=== PATIENT | female | born 1950 | race African-American/Black ===

== ENCOUNTER 2016-10-09 07:41 | Day surgery (SDC) | payer MEDICARE, OTHER ==
[2016-10-06 15:55] LABS: HEMATOCRIT 40.1 % (36.0-48.0); HEMOGLOBIN 13.3 g/dL (12.0-16.0)
[2016-10-06 16:07] LABS: BUN (BLOOD UREA NITROGEN) 20 MG/DL (6-23); CHLORIDE, SERUM 105 MMOL/L (96-112); CO2 (CARBON DIOXIDE) 28 MMOL/L (24-34); GFR AFRICAN AMERICAN 90 ML/MIN (>=60); GFR NON AFRICAN AMERICAN 77 ML/MIN (>=60); POTASSIUM, SERUM 3.9 MMOL/L (3.5-5.3); SODIUM, SERUM 144 MMOL/L (135-148)
[2016-10-06 16:11] LABS: GLUCOSE, SERUM 106 MG/DL (60-99)
[~2016-10-09 07:41] MED LIST: ACTOS30 PO; ALPHAGAN P0.1 % OPH; ASAB PO; COQ-1010 MG PO; COZ50 PO; HYDROCHLOROT25 MG PO; MOBIC15 MG PO; PRAVACHOL40 MG PO; VIT D 2 PO
== END 2016-10-09 23:59 | disposition home or self-care (01) ==
LOC: SDC 07:41
PROVIDERS: Ophthalmology
PROC: 08RK3JZ Replacement of Left Lens with Synthetic Substitute, Percutaneous Approach (ICD-10-PCS; principal; 2016-10-09 09:30)
DX: H25.11 Age-related nuclear cataract, right eye (principal); I10 Essential (primary) hypertension; E78.00 Pure hypercholesterolemia, unspecified; E66.8 Other obesity; M19.90 Unspecified osteoarthritis, unspecified site; Z79.1 Long term (current) use of non-steroidal anti-inflammatories (NSAID); Z79.899 Other long term (current) drug therapy; Z87.891 Personal history of nicotine dependence; E11.36 Type 2 diabetes mellitus with diabetic cataract; Z90.710 Acquired absence of both cervix and uterus; Z90.722 Acquired absence of ovaries, bilateral; Z98.890 Other specified postprocedural states; Z87.442 Personal history of urinary calculi
CPT/HCPCS: 80048; 82962; 85014; 85018; J2150; J2405; V2787